=== PATIENT | female | born 1985 | race Caucasian/White ===

== ENCOUNTER 2020-02-20 08:03 | Emergency (ER) | payer OTHER ==
[~2020-02-20] VITALS: Ht 162.6 cm; Wt 96.0 kg
[2020-02-20] MEDS ORDERED: MELA2.5C3 PO (08:11)
[2020-02-20] MEDS ORDERED: IBUPROFEN 100 MG/5 ML SUSP UDC DYE FREE PO ONE (08:30)
--- NOTE | 2020-02-20 09:06 | REP ---
INDICATION: fall with pain and swelling. COMPARISON: None. TECHNIQUE: Four views provided FINDINGS: There is no evidence of a joint effusion, avulsion of the triceps, fracture or focal bone lesion. No abnormal soft tissue calcifications are noted. IMPRESSION: 1. No fracture, focal bone lesion, avulsion or joint effusion evident. <Electronically signed by Brian Carr > 02/20/20 0902
[2020-02-20] MEDS ORDERED: IBUP-1022 PO (09:22)
[2020-02-20] MEDS ORDERED: ACET-897 PO (09:22)
[2020-02-20 09:35] VITALS: BP 140/89
== END 2020-02-20 09:40 | disposition home or self-care (01) ==
LOC: M ED 08:03
DX: S50.312A Abrasion of left elbow, initial encounter (principal); W00.0XXA Fall on same level due to ice and snow, initial encounter; Y92.9 Unspecified place or not applicable; Y99.0 Civilian activity done for income or pay; Z88.8 Allergy status to other drugs, medicaments and biological substances